=== PATIENT | male | born 1945 | race Caucasian/White ===

== ENCOUNTER 2018-12-07 14:33 | Inpatient (IN) | payer OTHER ==
[~2018-12-07] VITALS: Ht 170.2 cm; Wt 81.8 kg
[2018-12-07 14:49] VITALS: BP 117/108
[2018-12-07] MEDS ORDERED: OMEPRAZOLE 20 M20 M1 PO (14:55)
[2018-12-07] MEDS ORDERED: ASPIR 8181 MG PO (14:55)
[2018-12-07] MEDS ORDERED: LIPITOR80 MG PO (14:56)
[2018-12-07] MEDS ORDERED: TOPROL XL25 MG PO (14:56)
[2018-12-07 15:38] LABS: ABSOLUTE BASOPHILS 0.1 thou/uL (0.0-0.2); ABSOLUTE MONOCYTES 0.8 thou/uL (0.0-1.2); ABSOLUTE NEUTROPHILS 6.5 thou/uL (1.6-8.1); BASOPHILS 0.5 %; EOSINOPHILS 0.1 %; HEMATOCRIT 42.1 % (42.0-52.0); HEMOGLOBIN 14.5 gm/dL (14.0-18.0); LYMPHOCYTES 21.5 %; MCH 32.5 pg (26.0-34.0); MCHC 34.5 g/dL (28.0-37.0); MCV 94.3 fL (80.0-100.0); MONOCYTES 8.4 %; MPV 8.6 fl. (7.2-11.1); NUCLEATED RBCS 0 /100WBC; PLATELET COUNT* 221 thou/uL (150-400); POLYS 69.5 %; RBC 4.46 mil/uL (4.50-6.00); RDW-CV 13.4 % (10.5-14.5); WBC 9.4 thou/uL (4.0-11.0)
[2018-12-07 15:54] LABS: CALCIUM 8.7 mg/dL (8.5-10.1); CREATININE 1.3 mg/dL (0.6-1.3); POTASSIUM 3.9 mmol/L (3.5-5.1)
[2018-12-07 15:59] LABS: ALBUMIN 3.7 g/dL (3.4-5.0); TOTAL BILIRUBIN 1.2 mg/dL (<0.1-1.0); TOTAL PROTEIN 7.6 g/dL (6.4-8.2)
[2018-12-07 17:31] LABS: URINE BILIRUBIN NEGATIVE (Negative); URINE BLOOD 3+ (Negative); URINE CLARITY CLEAR; URINE COLOR YELLOW; URINE GLUCOSE-RANDOM NEGATIVE (Negative); URINE KETONES NEGATIVE (Negative); URINE LEUKOCYTES-REFLEX NEGATIVE (Negative); URINE NITRITE-REFLEX NEGATIVE (Negative); URINE PROTEIN 2+ (Negative)
[2018-12-07 17:38] LABS: SQUAMOUS 0-3 Few /LPF (0-3)
[2018-12-07 17:39] LABS: BACTERIA-REFLEX None Seen /HPF (None Seen); CASTS None Seen /LPF (None Seen); CRYSTALS None Seen /LPF (None Seen); URINE RBC 3-10 Few /HPF (0-2); URINE WBC-REFLEX None Seen /HPF (0-5)
[2018-12-07 18:33] LABS: MAGNESIUM 1.6 mg/dL (1.8-2.4); PHOSPHORUS* 2.4 mg/dL (2.5-4.9)
[2018-12-07 18:51] VITALS: BP 169/75
[2018-12-07 19:40] LABS: PROTIME 10.7 Seconds (9.20-11.50)
[2018-12-07 19:42] LABS: AMP/METHAMP Negative (Negative); BARBITURATES Negative (Negative); BENZODIAZEPINES Negative (Negative); COCAINE Negative (Negative); METHADONE Negative (Negative); OPIATES Negative (Negative); PCP Negative (Negative); THC Negative (Negative)
[2018-12-07 20:00] VITALS: BP 150/65
[2018-12-08] VITALS: BP 152/73
[2018-12-08 04:00] VITALS: BP 107/68
[2018-12-08 08:48] VITALS: BP 155/81
[2018-12-08 12:05] VITALS: BP 123/63
--- NOTE | 2018-12-08 12:51 | EKG ---
[place] [address] ELECTROCARDIOGRAM REPORT Name: ABNDAR VALENTINO Room: [address] ADM IN ..#: [id number] Admission: 12/07/18 Attend Phys: Tom Pepe Discharge: Date of : 43 Report #: [id number] THIS REPORT FOR: //name// [facility] ED Test Date: 2018-12-07 Test Time: 18:23:21 Pat Name: BANDAR VALENTINO Department: Room: [facility] Gender: M Ap Operator: MARLEEN : 1945 Requested By: Wendy Avina Order Number: [id number] MD: Adi Hancock Measurements Intervals [place] Rate: 63 P: 71 ND: 183 QRS: 19 QRSD: 105 T: 22 QT: 451 QTc: 462 Interpretive Statements Sinus rhythm No previous ECG available for comparison Electronically Signed On 12-08-2018 12:51:16 CDT by Adi Hancock [email or web address] <ELECTRONICALLY SIGNED> By: Adi Hancock MD, MERGED WITH [facility] 12/08/18 1251 1823 22 Adi Hancock MD, FACC /EPI
[2018-12-08 13:15] LABS: ABSOLUTE EOSINOPHILS 0.2 thou/uL (0.0-0.7); ABSOLUTE LYMPHOCYTES 1.8 thou/uL (0.8-5.3); ABSOLUTE MONOCYTES 0.6 thou/uL (0.0-1.2); ABSOLUTE NEUTROPHILS 4.6 thou/uL (1.6-8.1); BASOPHILS 0.4 %; EOSINOPHILS 3.1 %; HEMATOCRIT 37.4 % (42.0-52.0); HEMOGLOBIN 12.7 gm/dL (14.0-18.0); LYMPHOCYTES 25.1 %; MCHC 34.1 g/dL (28.0-37.0); MCV 96.8 fL (80.0-100.0); MONOCYTES 8.5 %; MPV 9.7 fl. (7.2-11.1); NUCLEATED RBCS 0 /100WBC; PLATELET COUNT* 173 thou/uL (150-400); POLYS 62.9 %; RBC 3.86 mil/uL (4.50-6.00); RDW-CV 13.6 % (10.5-14.5); WBC 7.4 thou/uL (4.0-11.0)
[2018-12-08 13:33] LABS: ALBUMIN 2.8 g/dL (3.4-5.0); CALCIUM 7.8 mg/dL (8.5-10.1); CREATININE 1.2 mg/dL (0.6-1.3); POTASSIUM 3.5 mmol/L (3.5-5.1); TOTAL BILIRUBIN 0.8 mg/dL (<0.1-1.0)
[2018-12-08 15:40] VITALS: BP 146/67
[2018-12-08 20:00] VITALS: BP 172/87
[2018-12-09] VITALS: BP 160/79
[2018-12-09 04:00] VITALS: BP 169/82
[2018-12-09 04:30] LABS: CALCIUM 7.8 mg/dL (8.5-10.1); CREATININE 1.2 mg/dL (0.6-1.3); MAGNESIUM 1.5 mg/dL (1.8-2.4); PHOSPHORUS* 2.6 mg/dL (2.5-4.9); POTASSIUM 3.6 mmol/L (3.5-5.1)
[2018-12-09 08:00] VITALS: BP 154/70
[2018-12-09 11:30] VITALS: BP 184/86
[2018-12-09 16:00] VITALS: BP 147/80
[2018-12-09 20:00] VITALS: BP 173/87
[2018-12-10] VITALS: BP 179/80
[2018-12-10 04:00] VITALS: BP 162/73
[2018-12-10 04:58] LABS: ABSOLUTE EOSINOPHILS 0.5 thou/uL (0.0-0.7); ABSOLUTE LYMPHOCYTES 1.8 thou/uL (0.8-5.3); ABSOLUTE MONOCYTES 0.5 thou/uL (0.0-1.2); ABSOLUTE NEUTROPHILS 5.1 thou/uL (1.6-8.1); BASOPHILS 0.5 %; EOSINOPHILS 6.1 %; HEMATOCRIT 38.8 % (42.0-52.0); HEMOGLOBIN 13.5 gm/dL (14.0-18.0); LYMPHOCYTES 22.7 %; MCHC 34.9 g/dL (28.0-37.0); MCV 94.5 fL (80.0-100.0); MONOCYTES 6.2 %; MPV 8.9 fl. (7.2-11.1); NUCLEATED RBCS 0 /100WBC; PLATELET COUNT* 180 thou/uL (150-400); POLYS 64.5 %; RDW-CV 13.3 % (10.5-14.5); WBC 7.9 thou/uL (4.0-11.0)
[2018-12-10 05:01] LABS: CREATININE 0.9 mg/dL (0.6-1.3); POTASSIUM 3.8 mmol/L (3.5-5.1)
[2018-12-10 11:22] VITALS: BP 193/96
[2018-12-10 16:11] VITALS: BP 150/72
[2018-12-10 19:55] VITALS: BP 153/81
[2018-12-11] VITALS: BP 164/67
[2018-12-11 04:00] VITALS: BP 171/93
[2018-12-11 05:20] LABS: CALCIUM 8.4 mg/dL (8.5-10.1); MAGNESIUM 1.7 mg/dL (1.8-2.4); PHOSPHORUS* 3.4 mg/dL (2.5-4.9); POTASSIUM 3.8 mmol/L (3.5-5.1)
[2018-12-11 07:28] VITALS: BP 157/85
[2018-12-11] MEDS ORDERED: NORVASC5 M1 PO (09:14)
[2018-12-11 11:58] VITALS: BP 147/86
[2018-12-11] MEDS ORDERED: VITAMIN B-1100 M1 PO (12:56)
[2018-12-11] MEDS ORDERED: NORVASC10 MG PO (12:56)
[2018-12-11] MEDS ORDERED: PRENATAL PO (12:56)
[2018-12-11 13:28] VITALS: BP 147/86
[2018-12-11 14:08] VITALS: BP 147/86
--- NOTE | 2018-12-12 10:28 | CON ---
[facility] [address] [place] [address] CONSULTATION Name: BANDAR VALENTINO Room: [address] IN M.R.#: [id number] Admission: 12/07/18 Attend Phys: Tom Pepe Discharge: 12/11/18 Date of : 43 Report #: [id number] THIS REPORT FOR: //name// CC: NIKUNJ Lancaster DATE OF SERVICE: 12/10/2018 CARDIOLOGY CONSULTATION HISTORY OF PRESENT ILLNESS: The patient in a 73-year-old white male who I was asked to see in the hospital today after he complained of lightheadedness. The patient underwent coronary artery stenting in 2013 at [facility] by Dr. Antonio Combs from the radial artery. He apparently had 2 stents placed in his LAD and one in the circumflex. He has done well since that time and has been followed by my partner, Dr. Sidhu here at [place]. He actually underwent a stress echo here in 2015 when he walked for 7-1/2 minutes without chest pain. There is no evidence of ischemia noted on echo imaging. The patient states he stays fairly active. Apparently last week, he was consuming a significant amount of alcohol. He then began to feel lightheaded and dizzy. His granddaughter finally brought him to the Emergency Room 3 days ago. He apparently complained of black stools, nausea and abdominal discomfort. He was seen by the GI service and underwent upper endoscopy and was found to have esophagitis, hiatal hernia. Because of his history of coronary artery disease, cardiology consultation was requested. He denies recent chest pain, shortness of breath. He does note occasional episodes where his heart rate will increase. He has had no syncope or edema. PAST MEDICAL HISTORY: He has had a tonsillectomy. He has a history of hyperlipidemia. MEDICATIONS: On admission include aspirin, Lipitor and metoprolol. ALLERGIES: He has no known drug allergies. FAMILY HISTORY: The patient is adopted. SOCIAL HISTORY: He is . He and his live in [place]. His is actually originally from [facility]. No smoking. Does drink alcohol occasionally. REVIEW OF SYSTEMS: He has had no history of stroke, asthma, peptic ulcer disease, liver disease, kidney disease. He has had prostatism. No cancer. No psychiatric illness. [place] [address] CONSULTATION Name: BANDAR VALENTINO Room: [address]#: [id number] Admission: 12/07/18 Attend Phys: Tom Pepe Discharge: 12/11/18 Date of : 43 Report #: [id number] PHYSICAL EXAMINATION: GENERAL: Revealed an elderly male sitting in a chair. He appeared in no distress. VITAL SIGNS: Blood pressure 160/80 and pulse 60. HEENT: He is anicteric. Conjunctivae pink. Mucous membranes moist. NECK: Veins do not appear distended. No carotid bruits. Neck supple. CHEST: Clear to auscultation. CARDIOVASCULAR: Regular rate and rhythm. ABDOMEN: Soft. EXTREMITIES: Had no edema. SKIN: Warm and dry. NEUROLOGIC: Nonfocal. LABORATORY DATA: His ECG showed a sinus bradycardia. There is no significant ST or T-wave change. His workup, he had CT scan of the head on admission that showed some atrophy, otherwise unremarkable. CT scan of the abdomen and pelvis on admission showed coronary artery calcifications, otherwise hiatal hernia, fatty liver. His lab work, sodium 140, creatinine 0.9 and albumin 2.8. TSH 5.3. His white blood cell count 7.9 and hemoglobin 13.5. IMPRESSION AND RECOMMENDATIONS: 1. Coronary artery disease. No significant angina. I would continue aspirin a day. 2. Hypertension. The patient has been on a beta christina. 3. Hyperlipidemia. The patient is on a statin drug. 4. Prostatism. 5. Hiatal hernia. <ELECTRONICALLY SIGNED> By: Adi Hancock MD, [facility] 12/12/18 1028 1419 [id number] Hancock MD, [facility] /nt
== END 2018-12-11 14:07 | disposition home or self-care (01) | DRG 377 ==
LOC: M.ERS 14:33 → M.2W 17:51 → M.TBA-ER 17:51 → M.2W 19:01
PROVIDERS: Family Medicine; Internal Medicine Gastroenterology; Personal Emergency Response Attendant; ADMIT Internal Medicine
PROC: HZ2ZZZZ Detoxification Services for Substance Abuse Treatment (ICD-10-PCS; 2018-12-07)
PROC: 0DJ08ZZ Inspection of Upper Intestinal Tract, Via Natural or Artificial Opening Endoscopic (ICD-10-PCS; principal; 2018-12-08)
DX: K92.2 Gastrointestinal hemorrhage, unspecified (principal); G92 Toxic encephalopathy; F41.9 Anxiety disorder, unspecified; I10 Essential (primary) hypertension; E78.00 Pure hypercholesterolemia, unspecified; E78.5 Hyperlipidemia, unspecified; N40.0 Benign prostatic hyperplasia without lower urinary tract symptoms; K44.9 Diaphragmatic hernia without obstruction or gangrene; Z79.82 Long term (current) use of aspirin; Z79.899 Other long term (current) drug therapy; Z95.5 Presence of coronary angioplasty implant and graft; K21.0 Gastro-esophageal reflux disease with esophagitis; R00.1 Bradycardia, unspecified; I25.10 Atherosclerotic heart disease of native coronary artery without angina pectoris; F10.10 Alcohol abuse, uncomplicated; Y90.9 Presence of alcohol in blood, level not specified